=== PATIENT | male | born 1950 | race Caucasian/White ===

== ENCOUNTER 2021-07-22 14:54 | Observation (INO) | payer OTHER, MEDICARE ==
[~2021-07-22 14:54] MED LIST: Iopamidol-370 76% 500 ML 1 ML ONE
[2021-07-22 15:20] LABS: #Basophils 0.1 thou/uL (0.0-0.2); #Eosinphils 0.1 thou/uL (0.0-0.7); #Lymphocytes 1.6 thou/uL (1.20-3.40); #Monocytes 0.7 thou/uL (0.11-0.59); %Basophils 0.6 % (0.0-1.0); %Eosinophils 1.1 % (0.0-10.0); %Lymphocytes 17.2 % (21.0-51.0); %Monocytes 6.9 % (0.0-10.0); %Neutrophils 74.2 % (42.0-75.0); Hemoglobin 13.2 g/dL (14.0-18.0); Mean Corpuscular HGB CONC 34.1 g/dL (32.0-36.0); Mean Corpuscular Hemoglobin 33.2 pg (27.0-31.0); Mean Corpuscular Volume 97.4 fL (78.0-98.0); Mean Platelet Volume 7.3 fL (7.4-10.4); Platelet Count 343 thou/uL (130-400); RBC Distribution Width 12.2 % (11.5-14.5); Red Blood Cell (RBC) Count 3.97 mill/uL (4.70-6.10); White Blood Cell (WBC) Count 9.5 thou/uL (4.8-10.8)
[2021-07-22 15:38] LABS: ALT (SGPT) 19 U/L (8-55); AST (SGOT) 28 U/L (5-34); Albumin 3.9 g/dL (3.4-4.8); Alkaline Phosphatase 90 U/L (40-110); Anion Gap 14 mmol/L (10-20); BUN (Urea Nitrogen) 16 mg/dL (8.4-25.7); Bilirubin, Total 0.3 mg/dL (0.2-1.2); Calc. Creatinine Clearance 0 mL/min (70-130); Carbon Dioxide 23 mmol/L (23-31); Chloride 104 mmol/L (98-107); Globulin 3.1 g/dL (2.4-3.5); Glucose 153 mg/dL (80-115); Potassium 4.5 mmol/L (3.5-5.1); Sodium 136 mmol/L (136-145)
[2021-07-22] MEDS ORDERED: Ondansetron PF 4 MG/2 ML Vial IVP PRN (16:03)
[2021-07-22] MEDS ORDERED: hydrALAZINE 20 MG/ML VIAL SLOW IVP PRN (16:03)
[2021-07-22] MEDS ORDERED: Dextrose 5% in Water 1,000 ML IV PRN (16:03)
[2021-07-22] MEDS ORDERED: Dextrose 50% Abboject 50 ML SYRINGE SLOW IVP PRN (16:03)
[2021-07-22] MEDS ORDERED: traMADol HCl 50 MG TAB PO PRN (16:06)
[2021-07-22] MEDS ORDERED: Cyclobenzaprine 10 MG TAB PO PRN (16:06)
[2021-07-22 17:33] LABS: SARS-CoV-2 NAA Rapid Test Not Detected (NotDetected)
[2021-07-22] MEDS ORDERED: Ibuprofen 200 MG TAB PO PRN (17:37)
[2021-07-22 17:55] VITALS: BMI 27.2
[2021-07-22] MEDS: Acetaminophen 500 MG TAB PO SCH ×2 (18:39→23:42)
[2021-07-22] MEDS: traMADol HCl 50 MG TAB PO SCH ×2 (18:40→23:43)
[2021-07-22] MEDS ORDERED: Non-Formulary Item 1 EACH (Losartan Potassium [Cozaar] 50 MG Tab) PO SCH (21:00)
[2021-07-22] MEDS: Senokot S 8.6-50 MG TAB PO SCH (21:12)
[2021-07-22] MEDS: Gabapentin 100 MG CAP PO SCH (21:13)
[2021-07-22] MEDS: Furosemide 40 MG TAB PO SCH (21:13)
[2021-07-22] MEDS: Finasteride 5 MG TAB PO SCH (21:13)
[2021-07-22] MEDS: Losartan 25 MG TAB PO SCH (21:13)
[2021-07-23 04:54] LABS: #Basophils 0.1 thou/uL (0.0-0.2); #Eosinphils 0.1 thou/uL (0.0-0.7); #Lymphocytes 1.4 thou/uL (1.20-3.40); #Monocytes 0.8 thou/uL (0.11-0.59); #Neutrophils 8.7 thou/uL (1.40-6.50); %Basophils 0.6 % (0.0-1.0); %Eosinophils 1.1 % (0.0-10.0); %Lymphocytes 12.4 % (21.0-51.0); %Monocytes 7.3 % (0.0-10.0); %Neutrophils 78.7 % (42.0-75.0); Hemoglobin 11.7 g/dL (14.0-18.0); Mean Corpuscular HGB CONC 33.2 g/dL (32.0-36.0); Mean Corpuscular Hemoglobin 32.4 pg (27.0-31.0); Mean Corpuscular Volume 97.8 fL (78.0-98.0); Mean Platelet Volume 7.1 fL (7.4-10.4); Platelet Count 307 thou/uL (130-400); RBC Distribution Width 12.2 % (11.5-14.5); Red Blood Cell (RBC) Count 3.61 mill/uL (4.70-6.10); White Blood Cell (WBC) Count 11.1 thou/uL (4.8-10.8)
[2021-07-23] MEDS: traMADol HCl 50 MG TAB PO SCH ×4 (05:22→23:54)
[2021-07-23] MEDS: Acetaminophen 500 MG TAB PO SCH ×4 (05:23→23:55)
[2021-07-23 05:24] LABS: Anion Gap 9 mmol/L (10-20); BUN (Urea Nitrogen) 13 mg/dL (8.4-25.7); Calc. Creatinine Clearance 134 mL/min (70-130); Calcium 8.9 mg/dL (7.8-10.44); Carbon Dioxide 27 mmol/L (23-31); Chloride 107 mmol/L (98-107); Glucose 107 mg/dL (80-115); Potassium 3.5 mmol/L (3.5-5.1); Sodium 139 mmol/L (136-145)
[2021-07-23] MEDS: Tamsulosin HCl 0.4 MG CAP PO SCH (08:24)
[2021-07-23] MEDS: Senokot S 8.6-50 MG TAB PO SCH ×2 (08:24→21:19)
[2021-07-23] MEDS: Potassium Chloride 20 MEQ TAB PO SCH (08:25)
[2021-07-23] MEDS: Gabapentin 100 MG CAP PO SCH ×3 (08:25→21:21)
[2021-07-23] MEDS: Losartan 25 MG TAB PO SCH ×2 (08:25→21:19)
[2021-07-23] MEDS: Furosemide 40 MG TAB PO SCH ×2 (08:25→21:21)
[2021-07-23] MEDS: Polyethylene Glycol 3350 17 GM Packet PO SCH (08:26)
[2021-07-23] MEDS ORDERED: Non-Formulary Item 1 EACH (Omeprazole [Omeprazole] 40 MG Capsule.Dr) PO SCH (09:00)
[2021-07-23] MEDS ORDERED: POTASSIUM CHLORIDE 20 MEQ PO SCH (09:00)
[2021-07-23] MEDS: Ibuprofen 200 MG TAB PO SCH ×2 (14:55→21:20)
[2021-07-23] MEDS: Finasteride 5 MG TAB PO SCH (21:20)
[2021-07-24] MEDS: Ibuprofen 200 MG TAB PO SCH (06:13)
[2021-07-24] MEDS: Acetaminophen 500 MG TAB PO SCH ×2 (06:14→11:54)
[2021-07-24] MEDS: traMADol HCl 50 MG TAB PO SCH ×2 (06:14→11:54)
[2021-07-24] MEDS: Losartan 25 MG TAB PO SCH (08:44)
[2021-07-24] MEDS: Furosemide 40 MG TAB PO SCH (08:44)
[2021-07-24] MEDS: Potassium Chloride 20 MEQ TAB PO SCH (08:44)
[2021-07-24] MEDS: Gabapentin 100 MG CAP PO SCH (08:44)
[2021-07-24] MEDS: Tamsulosin HCl 0.4 MG CAP PO SCH (08:45)
[2021-07-24] MEDS: Senokot S 8.6-50 MG TAB PO SCH (08:45)
[2021-07-24] MEDS: Polyethylene Glycol 3350 17 GM Packet PO SCH (08:45)
[2021-07-24 12:11] VITALS: BP 110/68; TEMP 97.9
== END 2021-07-24 13:35 | disposition home health service (06) ==
LOC: ERS 14:54 → SURG A 16:03
PROVIDERS: ADMIT Surgery; ATTEND Surgery
DX: S22.42XA Multiple fractures of ribs, left side, initial encounter for closed fracture (principal); S42.025A Nondisplaced fracture of shaft of left clavicle, initial encounter for closed fracture; S27.0XXA Traumatic pneumothorax, initial encounter; G89.11 Acute pain due to trauma; I11.0 Hypertensive heart disease with heart failure; I50.9 Heart failure, unspecified; N40.0 Benign prostatic hyperplasia without lower urinary tract symptoms; Z20.822 Contact with and (suspected) exposure to COVID-19; Z88.0 Allergy status to penicillin; Z79.899 Other long term (current) drug therapy; Z96.642 Presence of left artificial hip joint; W55.22XA Struck by cow, initial encounter; Y93.89 Activity, other specified; Y92.89 Other specified places as the place of occurrence of the external cause
CPT/HCPCS: 36415; 70450; 71045; 71260; 72125; 74177; 80048; 80053; 83735; 84100; 85025; 93005; G0378; G0390; Q9967; U0002